=== PATIENT | male | born 1975 | race Two or more races ===

== ENCOUNTER 2023-08-05 16:15 | Inpatient (IN) | payer OTHER ==
[~2023-08-05] VITALS: Ht 172.7 cm; Wt 72.7 kg
[2023-08-05] MEDS ORDERED: SODIUM CHLORIDE 0.9% 500 ML IVB ONE (16:45)
[2023-08-05 17:17] LABS: Urine Bacteria FEW /hpf (None Seen); Urine Blood 2+ /uL (Negative); Urine Budding Yeast MODERATE /hpf (None Seen); Urine Clarity CLOUDY (Clear); Urine Color Yellow (Yellow); Urine Hyaline Cast FEW /lpf (0 - 2); Urine Protein, UAD 2+ (Negative); Urine Specific Gravity 1.013 (1.001-1.035); Urine Urobilinogen Normal (Negative); Urine WBC 12 /hpf (0 - 3); Urine pH 7.5 (5.0-8.0)
[2023-08-05 17:20] LABS: Alanine Aminotransferase 15 U/L (7-40); Albumin 1.6 g/dL (3.2-4.8); Alkaline Phosphatase 169 U/L (46-116); Anion Gap 8 (5-15); Aspartate Aminotransferase 16 U/L (13-40); BUN/Creatinine Ratio 53.2 (10.0-20.0); Bilirubin, Total 1.7 mg/dL (0.2-1.0); Blood Urea Nitrogen 67 mg/dL (9-23); Carbon Dioxide 20 mmol/L (20-30); Chloride 111 mmol/L (98-107); Glucose 78 mg/dL (74-106); INR 1.37 (0.9-1.15); Partial Thromboplastin Time 45.4 SEC (24.5-34.5); Potassium 3.4 mmol/L (3.5-5.1); Prothrombin Time 14.1 sec (9.3-11.8); Sodium 139 mmol/L (136-145); Total Protein 3.8 g/dL (5.7-8.2)
[2023-08-05] MEDS ORDERED: NOREPINEPHRINE 8 MG/250ML KIT 250 ML IV ONE (17:21)
[2023-08-05] MEDS: NOREPINEPHRINE 8 MG/250ML KIT 250 ML IV SCH ×2 (17:34→23:59)
[2023-08-05] MEDS ORDERED: cefTRIAXone 1GM/50ML D5W 50 ML IV ONE (17:45)
[2023-08-05 17:59] LABS: Calcium 5.8 mg/dL (8.5-10.1)
[2023-08-05 18:13] VITALS: PULSE 95; RESP 16; O2SAT 98
[2023-08-05 19:43] VITALS: PULSE 100; RESP 20; O2SAT 96
[2023-08-05 19:52] LABS: Basophils # (auto) 0 10 ^3/uL (0-0.2); Basophils % (auto) 0.2 % (0.0-2.0); Eosinophils # (auto) 0.1 10 ^3/uL (0-0.8); Eosinophils % (auto) 0.8 % (0.0-7.0); Lymphocytes # (auto) 0.6 10 ^3/uL (0.4-5.4); Monocytes # (auto) 0.5 10 ^3/uL (0-1.3); Red Blood Cells 2.73 10^6/uL (4.5-5.90)
[2023-08-05 19:54] LABS: Hematocrit 20.1 % (41.0-53.0); Lymphocytes % (auto) 4.5 % (10.0-50.0); Mean Corpuscular Hemoglobin 23.9 pg (28.0-32.0); Mean Corpuscular Hgb Conc. 32.4 g/dL (32.0-36.0); Mean Corpuscular Volume 73.7 fL (80.0-100.0); Monocytes % (auto) 3.7 % (0.0-12.0); Neutrophils % (auto) 90.8 % (37.0-80.0); White Blood Cell 13.3 10^3/uL (4.4-10.8)
[2023-08-05 20:09] LABS: Red Cell Distribution Width 23.1 % (11.8-14.3)
[2023-08-05 20:10] LABS: Hemoglobin 6.5 g/dL (13.5-17.5)
[2023-08-05 21:11] LABS: Platelet Estimate Adequate
[2023-08-05 21:17] LABS: Anisocytosis Slight; Hypochromia Moderate
[2023-08-05 21:19] LABS: Ovalocytes MODERATE; Stomatocytes Few
[2023-08-05] MEDS ORDERED: ALBUMIN 5% 250 ML IV ONE (23:30)
[2023-08-05] MEDS ORDERED: MORPHINE SULFATE INJ 2 MG/ml SYRG IV PRN ×2 (23:30)
[2023-08-05] MEDS ORDERED: NITROGLYCERIN 0.4 MG SL TAB SL PRN (23:30)
[2023-08-05] MEDS ORDERED: HYDROcodone-ACET 5/325MG TAB PO PRN (23:30)
[2023-08-05] MEDS ORDERED: POTASSIUM CHL 20MEQ/100ML 100 ML IV ONE (23:30)
[2023-08-05] MEDS ORDERED: ACETAMINOPHEN 325 MG TAB PO PRN (23:30)
[2023-08-06] VITALS (30 sets, daily range): BP systolic 89–120; BP diastolic 56–80; PULSE 88–117; RESP 12–24; TEMP 97.7–98.6; O2SAT 94–97
[2023-08-06] MEDS ORDERED: ALBUMIN 5% 250 ML IV ONE (00:30)
[2023-08-06] MEDS: CALCIUM GLUC 1,000mg/50ml-NS 50 ML IV SCH ×2 (01:15→02:05)
[2023-08-06] MEDS: NOREPINEPHRINE 8 MG/250ML KIT 250 ML IV SCH ×5 (04:04→23:26)
[2023-08-06 05:31] LABS: Alanine Aminotransferase 25 U/L (7-40); Albumin 2.7 g/dL (3.2-4.8); Alkaline Phosphatase 256 U/L (46-116); Anion Gap 11 (5-15); Aspartate Aminotransferase 55 U/L (13-40); BUN/Creatinine Ratio 38.3 (10.0-20.0); Bilirubin, Total 2.9 mg/dL (0.2-1.0); Blood Urea Nitrogen 64 mg/dL (9-23); Calcium 8.4 mg/dL (8.5-10.1); Carbon Dioxide 20 mmol/L (20-30); Chloride 101 mmol/L (98-107); Glucose 110 mg/dL (74-106); Potassium 5.3 mmol/L (3.5-5.1)
[2023-08-06 06:04] LABS: Basophils # (auto) 0 10 ^3/uL (0-0.2); Eosinophils # (auto) 0.1 10 ^3/uL (0-0.8); Hematocrit 30.7 % (41.0-53.0); Lymphocytes # (auto) 0.5 10 ^3/uL (0.4-5.4); Lymphocytes % (auto) 3.7 % (10.0-50.0)
[2023-08-06 06:05] LABS: Sodium 132 mmol/L (136-145)
[2023-08-06 06:06] LABS: Basophils % (auto) 0.1 % (0.0-2.0); Eosinophils % (auto) 0.7 % (0.0-7.0); Hemoglobin 9.8 g/dL (13.5-17.5); Mean Corpuscular Hemoglobin 25.4 pg (28.0-32.0); Mean Corpuscular Volume 79.6 fL (80.0-100.0); Monocytes # (auto) 0.4 10 ^3/uL (0-1.3); Monocytes % (auto) 3.2 % (0.0-12.0); Neutrophils # (auto) 11.8 10 ^3/uL (1.6-8.6); Neutrophils % (auto) 92.3 % (37.0-80.0); Red Blood Cells 3.86 10^6/uL (4.5-5.90); White Blood Cell 12.8 10^3/uL (4.4-10.8)
[2023-08-06 06:09] LABS: Red Cell Distribution Width 23.5 % (11.8-14.3)
[2023-08-06] MEDS ORDERED: TPN PER PHARMACY 0 ML IV SCH (06:45)
[2023-08-06] MEDS ORDERED: MORPHINE SULFATE INJ 2 MG/ml SYRG IV PRN (06:45)
[2023-08-06] MEDS ORDERED: AZITHROMYCIN 500MG/ 250ML 250 ML IV SCH (07:00)
[2023-08-06] MEDS: ONDANSETRON HCL 4 MG/2 ML VIAL IV PRN ×3 (08:23→19:06)
[2023-08-06 08:53] LABS: Phosphorus 3.5 mg/dL (2.4-5.1)
[2023-08-06] MEDS ORDERED: cefTRIAXone 1GM/50ML D5W 50 ML IV SCH (09:00)
[2023-08-06] MEDS ORDERED: SODIUM CHLORIDE 0.9% 500 ML IV ONE (09:45)
[2023-08-06] MEDS ORDERED: DEXTROSE (50%) 50ML SYRG IV SCH (10:00)
[2023-08-06 10:12] LABS: Magnesium 2.2 mg/dL (1.6-2.6)
[2023-08-06] MEDS: ACCU-CHEK COMFORT CURVE STRIP VI SCH ×3 (11:43→23:30)
[2023-08-06] MEDS: InsuLIN REG 1unit/0.01ml Soln (100units/ml) SC SCH ×3 (11:43→23:30)
[2023-08-06] MEDS: SODIUM CHLORIDE 0.9% 1,000 ML IV SCH (12:08)
[2023-08-06] MEDS: PIPERACILLIN-TAZOB 3.375GM 100 ML IV SCH ×2 (14:07→21:40)
[2023-08-06] MEDS: MORPHINE SULFATE INJ 2 MG/ml SYRG IV PRN ×3 (15:06→23:42)
[2023-08-06] MEDS ORDERED: TPN PER PHARMACY IV NR ×8 (20:00)
[2023-08-06] MEDS: HYDROCORTISONE SOD SUCC 100 MG/2ML INJ VIAL IV SCH (21:40)
[2023-08-07] VITALS (54 sets, daily range): BP systolic 93–129; BP diastolic 41–88; PULSE 64–94; RESP 11–25; TEMP 97.7–98.2; O2SAT 14–99
[2023-08-07] MEDS: MORPHINE SULFATE INJ 2 MG/ml SYRG IV PRN ×2 (04:14→08:26)
[2023-08-07 05:41] LABS: Basophils # (auto) 0 10 ^3/uL (0-0.2); Eosinophils # (auto) 0.1 10 ^3/uL (0-0.8); Eosinophils % (auto) 0.4 % (0.0-7.0); Hemoglobin 9.7 g/dL (13.5-17.5); Mean Corpuscular Hgb Conc. 32.8 g/dL (32.0-36.0); Monocytes # (auto) 0.7 10 ^3/uL (0-1.3); White Blood Cell 15.6 10^3/uL (4.4-10.8)
[2023-08-07 06:03] LABS: Alanine Aminotransferase 26 U/L (7-40); Albumin 2.4 g/dL (3.2-4.8); Alkaline Phosphatase 199 U/L (46-116); Anion Gap 9 (5-15); Aspartate Aminotransferase 38 U/L (13-40); BUN/Creatinine Ratio 43.7 (10.0-20.0); Blood Urea Nitrogen 69 mg/dL (9-23); Calcium 8.2 mg/dL (8.5-10.1); Carbon Dioxide 23 mmol/L (20-30); Chloride 102 mmol/L (98-107); Potassium 4.7 mmol/L (3.5-5.1); Sodium 134 mmol/L (136-145); Triglycerides 330 mg/dL (< 150)
[2023-08-07 06:04] LABS: Bilirubin, Total 3.4 mg/dL (0.2-1.0); Phosphorus 4.7 mg/dL (2.4-5.1); Total Protein 5.5 g/dL (5.7-8.2)
[2023-08-07] MEDS: NOREPINEPHRINE 8 MG/250ML KIT 250 ML IV SCH ×2 (06:06→22:21)
[2023-08-07 06:10] LABS: Glucose 219 mg/dL (74-106)
[2023-08-07 06:21] LABS: Basophils % (auto) 0.2 % (0.0-2.0); Hematocrit 29.6 % (41.0-53.0); Lymphocytes # (auto) 0.4 10 ^3/uL (0.4-5.4); Lymphocytes % (auto) 2.5 % (10.0-50.0); Magnesium 2.2 mg/dL (1.6-2.6); Mean Corpuscular Hemoglobin 25.5 pg (28.0-32.0); Mean Corpuscular Volume 77.7 fL (80.0-100.0); Monocytes % (auto) 4.3 % (0.0-12.0); Neutrophils # (auto) 14.4 10 ^3/uL (1.6-8.6); Neutrophils % (auto) 92.6 % (37.0-80.0); Red Blood Cells 3.81 10^6/uL (4.5-5.90); Red Cell Distribution Width 23.7 % (11.8-14.3)
[2023-08-07] MEDS: ACCU-CHEK COMFORT CURVE STRIP VI SCH ×3 (06:41→18:26)
[2023-08-07] MEDS: InsuLIN REG 1unit/0.01ml Soln (100units/ml) SC SCH ×3 (06:41→18:31)
[2023-08-07] MEDS: PIPERACILLIN-TAZOB 3.375GM 100 ML IV SCH ×2 (06:42→14:35)
[2023-08-07] MEDS: SODIUM CHLORIDE 0.9% 1,000 ML IV SCH ×4 (07:30→20:34)
[2023-08-07 09:15] LABS: Anisocytosis Moderate; Hypochromia Moderate; Platelet Estimate Decreased
[2023-08-07] MEDS: HYDROCORTISONE SOD SUCC 100 MG/2ML INJ VIAL IV SCH ×2 (10:59→21:15)
[2023-08-07] MEDS: ONDANSETRON HCL 4 MG/2 ML VIAL IV PRN (14:37)
[2023-08-07] MEDS: HYDROmorphone HCL 2 MG/ML VL/or syr IV PRN ×2 (14:38→21:31)
[2023-08-07] MEDS ORDERED: SODIUM ACETATE IV NR ×9 (20:00)
[2023-08-07] MEDS ORDERED: FAT EMULSION IV NR ×9 (20:00)
[2023-08-07] MEDS ORDERED: [UNRECOGNIZED DRUG - OTHER] IV NR ×9 (20:00)
[2023-08-07] MEDS ORDERED: CALCIUM GLUC IV NR ×9 (20:00)
[2023-08-07] MEDS: MEROPENEM 1GM IVPB 100 ML IV SCH (21:16)
[2023-08-08] VITALS (32 sets, daily range): BP systolic 90–128; BP diastolic 63–79; PULSE 60–95; RESP 11–22; TEMP 96.4–97.7; O2SAT 96–99
[2023-08-08] MEDS: InsuLIN REG 1unit/0.01ml Soln (100units/ml) SC SCH ×3 (00:04→12:41)
[2023-08-08] MEDS: ACCU-CHEK COMFORT CURVE STRIP VI SCH ×3 (00:04→12:27)
[2023-08-08] MEDS: HYDROmorphone HCL 2 MG/ML VL/or syr IV PRN ×4 (04:26→15:38)
[2023-08-08] MEDS: MEROPENEM 1GM IVPB 100 ML IV SCH ×2 (05:03→15:34)
[2023-08-08 05:42] LABS: Basophils # (auto) 0 10 ^3/uL (0-0.2); Eosinophils # (auto) 0 10 ^3/uL (0-0.8); Eosinophils % (auto) 0.1 % (0.0-7.0); Hemoglobin 9.2 g/dL (13.5-17.5); Lymphocytes # (auto) 0.4 10 ^3/uL (0.4-5.4); Lymphocytes % (auto) 3.4 % (10.0-50.0)
[2023-08-08 05:46] LABS: Basophils % (auto) 0.3 % (0.0-2.0); Mean Corpuscular Hemoglobin 25.8 pg (28.0-32.0); Mean Corpuscular Hgb Conc. 32.8 g/dL (32.0-36.0); Mean Corpuscular Volume 78.8 fL (80.0-100.0); Monocytes # (auto) 0.3 10 ^3/uL (0-1.3); Monocytes % (auto) 2.8 % (0.0-12.0); Neutrophils # (auto) 9.6 10 ^3/uL (1.6-8.6); Neutrophils % (auto) 93.4 % (37.0-80.0); Nucleated Red Blood Cells % 0.1 %; Red Blood Cells 3.56 10^6/uL (4.5-5.90); White Blood Cell 10.3 10^3/uL (4.4-10.8)
[2023-08-08 06:01] LABS: Alanine Aminotransferase 18 U/L (7-40); Albumin 2.2 g/dL (3.2-4.8); Alkaline Phosphatase 171 U/L (46-116); Anion Gap 8 (5-15); Aspartate Aminotransferase 23 U/L (13-40); BUN/Creatinine Ratio 43.9 (10.0-20.0); Carbon Dioxide 24 mmol/L (20-30); Chloride 105 mmol/L (98-107); Glucose 162 mg/dL (74-106); Potassium 3.4 mmol/L (3.5-5.1); Sodium 137 mmol/L (136-145)
[2023-08-08 06:02] LABS: Phosphorus 3.8 mg/dL (2.4-5.1)
[2023-08-08 06:03] LABS: Bilirubin, Total 2.7 mg/dL (0.2-1.0); Total Protein 5.2 g/dL (5.7-8.2)
[2023-08-08 06:05] LABS: Blood Urea Nitrogen 58 mg/dL (9-23)
[2023-08-08] MEDS: SODIUM CHLORIDE 0.9% 1,000 ML IV SCH (06:05)
[2023-08-08 06:46] LABS: Red Cell Distribution Width 23.6 % (11.8-14.3)
[2023-08-08 09:07] LABS: Platelet Estimate Decreased
[2023-08-08 09:08] LABS: Anisocytosis Moderate
[2023-08-08 09:13] LABS: Hypochromia Moderate
[2023-08-08] MEDS: HYDROCORTISONE SOD SUCC 100 MG/2ML INJ VIAL IV SCH (10:54)
[2023-08-08] MEDS ORDERED: POTASSIUM CHL 20MEQ/100ML 100 ML IV ONE (12:30)
[2023-08-08 14:20] LABS: COVID19 ANTIGEN SOFIA FIA NEGATIVE (NEGATIVE)
[2023-08-08] MEDS ORDERED: TPN PER PHARMACY IV NR ×18 (20:00)
== END 2023-08-08 17:45 | disposition short-term general hospital (02) | DRG 871 ==
LOC: ER 16:15 → TELE 23:30
PROVIDERS: ADMIT Nurse Practitioner; ATTEND Nurse Practitioner
PROC: 30233N1 Transfusion of Nonautologous Red Blood Cells into Peripheral Vein, Percutaneous Approach (ICD-10-PCS; principal; 2023-08-06)
DX: A41.9 Sepsis, unspecified organism (principal); E43 Unspecified severe protein-calorie malnutrition; G93.41 Metabolic encephalopathy; N17.0 Acute kidney failure with tubular necrosis; R65.21 Severe sepsis with septic shock; C18.9 Malignant neoplasm of colon, unspecified; K56.609 Unspecified intestinal obstruction, unspecified as to partial versus complete obstruction; N39.0 Urinary tract infection, site not specified; Z16.24 Resistance to multiple antibiotics; D64.9 Anemia, unspecified; G89.29 Other chronic pain; Z20.822 Contact with and (suspected) exposure to COVID-19; I10 Essential (primary) hypertension; N13.9 Obstructive and reflux uropathy, unspecified; R62.7 Adult failure to thrive; Z85.05 Personal history of malignant neoplasm of liver; Z85.528 Personal history of other malignant neoplasm of kidney; Z85.038 Personal history of other malignant neoplasm of large intestine; Z68.24 Body mass index [BMI] 24.0-24.9, adult
CPT/HCPCS: 36415; 36430; 70450; 74176; 80053; 81001; 82140; 82962; 83605; 83735; 84100; 84478; 85025; 85610; 85730; 86850; 86900; 86901; 86920; 87040; 87077; 87086; 87186; 87426; G0378; J0696; J1815; J2185; J2405; J2543; J3480